=== PATIENT | male | born 1960 | race Caucasian/White ===

== ENCOUNTER 2017-12-10 12:45 | Emergency (ER) | payer OTHER ==
[~2017-12-10] VITALS: Ht 162.6 cm; Wt 95.2 kg
[~2017-12-10 12:45] MED LIST: ACET325 PO; ALBU90OI INH; ALLERCLEAR10 MG PO; AMLACTIN; AMLACTIN 12%; Aspir 8181 MG PO; BENZOYL PEROXIDE 10% TOP; BENZT TP; CHLORHEXIDINE FL1 ML; DILT180ER PO; DIPATR PO; DONE10 PO; ESCI10 PO; FISH1000 PO; GLIM2 PO; GLIM4 PO; GLIP5 PO; Glipizide ER2.5 MG PO; HIBICLENS; HIBICLENS TOP; HIBICLENS120 ML EXT; HYDCHL25 PO; INSLI100I SC; INSULANI SC; KETO15TC TP; LACTIN; LISI20 PO; LISI5 PO; LOPE2C PO; LOVA40 PO; METO50 PO; NUEDEXTA 20-101 EACH PO; OMEP10ER PO; OMEP20ER PO; OMEPRAZOLE MAGN20 MG; ONDA4 PO; Peridex480 ML; Prednisone20 MG PO; RABE20; SULTRIDS PO; TRAZ50; Tamiflu75 MG PO; Toprol Xl25 MG PO; VITAMIN D32000 UNIT PO; [UNRECOGNIZED DRUG - CODE] PO; [UNRECOGNIZED DRUG - OTHER]; [UNRECOGNIZED DRUG - OTHER]; [UNRECOGNIZED DRUG - OTHER]; [UNRECOGNIZED DRUG - REMARK]
[2017-12-10] MEDS ORDERED: ALLO100 PO (13:01)
[2017-12-10 13:15] LABS: BASOPHILS ABSOLUTE AUTO 0.13 K/mm3 (0.00-0.23); BASOPHILS PERCENT AUTO 2 % (0-2); EOSINOPHILS ABSOLUTE AUTO 0.17 K/mm3 (0.00-0.68); EOSINOPHILS PERCENT AUTO 2 % (0-6); Hematocrit 38.7 % (37.0-53.0); Hemoglobin 12.5 g/dL (13.5-17.5); IMMATURE GRAN ABSOLUTE AUTO 0.35 K/mm3 (0.00-0.10); IMMATURE GRAN PERCENT AUTO 4 % (0-1); LYMPHOCYTES ABSOLUTE AUTO 2.38 K/mm3 (0.84-5.20); LYMPHOCYTES PERCENT AUTO 27 % (21-46); MONOCYTES ABSOLUTE AUTO 0.88 K/mm3 (0.16-1.47); MONOCYTES PERCENT AUTO 10 % (4-13); Mean Corpuscular HGB 31.2 pg (26.0-34.0); Mean Corpuscular HGB Conc 32.3 g/dL (31.5-36.5); Mean Corpuscular Volume 97 fL (80-100); Mean Platelet Volume 10.6 fL (9.1-12.4); NEUTROPHILS ABSOLUTE AUTO 4.91 K/mm3 (1.96-9.15); NEUTROPHILS PERCENT AUTO 56 % (41-73); Platelet Count 298 K/mm3 (150-400); RDW Coefficient Variation 13.5 % (11.7-14.2); Red Blood Cell Count 4.01 M/mm3 (4.30-5.90); White Blood Cell Count 8.82 K/mm3 (4.00-11.30)
[2017-12-10 13:32] LABS: Alanine Aminotransfer (ALT/SGP 46 U/L (12-78); Albumin, Blood 2.7 g/dL (3.4-5.0); Albumin/Globulin Ratio 0.8 (0.8-1.8); Alk Phos 95 U/L (50-136); Anion Gap 9 mmol/L (6-16); Aspartate Aminotrans (AST/SGOT 36 U/L (12-37); Bilirubin, Total 0.2 mg/dL (0.1-1.0); Blood Urea Nitrogen 40 mg/dL (8-24); Bun/Creatinine Ratio 20.3 (12.0-20.0); CO2, Blood 25 mmol/L (21-32); Chloride, Blood 108 mmol/L (98-108); Creatinine, Blood 1.97 mg/dL (0.60-1.20); Globulin, Blood 3.4 g/dL (2.2-4.0); Glomerular Filtration Rate 37 (60-); Glucose, Blood 144 mg/dL (70-99); Potassium, Blood 4.5 mmol/L (3.5-5.5); Sodium, Blood 142 mmol/L (136-145); Total Protein, Blood 6.1 g/dL (6.4-8.2); Troponin I <0.015 ng/mL (0.000-0.040)
== END 2017-12-10 14:21 | disposition home or self-care (01) ==
LOC: ER 12:45
PROVIDERS: Emergency Medicine
DX: Q90.9 Down syndrome, unspecified (principal); G30.9 Alzheimer's disease, unspecified; F02.80 Dementia in other diseases classified elsewhere, unspecified severity, without behavioral disturbance, psychotic disturbance, mood disturbance, and anxiety; E11.9 Type 2 diabetes mellitus without complications; I10 Essential (primary) hypertension; K21.9 Gastro-esophageal reflux disease without esophagitis; Z79.84 Long term (current) use of oral hypoglycemic drugs; Z79.899 Other long term (current) drug therapy; Z79.82 Long term (current) use of aspirin
CPT/HCPCS: 36415; 71046; 80053; 84484; 85025; 93005; 93010; 99284

== ENCOUNTER 2018-08-29 14:59 | Observation (INO) | payer OTHER ==
[~2018-08-29] VITALS: Ht 165.1 cm; Wt 90.5 kg
[~2018-08-29 14:59] MED LIST changes: +ALLO100 PO; -CHLORHEXIDINE FL1 ML; -FISH1000 PO; -KETO15TC TP; -METO50 PO; +OMEPRAZOLE MAGN20 MG PO; -VITAMIN D32000 UNIT PO
[2018-08-29] MEDS ORDERED: LOVA40 PO (15:19)
[2018-08-29] MEDS ORDERED: BUME1 PO (15:19)
[2018-08-29 15:44] LABS: BASOPHILS ABSOLUTE AUTO 0.05 K/mm3 (0.00-0.23); BASOPHILS PERCENT AUTO 0 % (0-2); EOSINOPHILS PERCENT AUTO 0 % (0-6); Hematocrit 33.6 % (37.0-53.0); Hemoglobin 10.6 g/dL (13.5-17.5); IMMATURE GRAN ABSOLUTE AUTO 0.57 K/mm3 (0.00-0.10); IMMATURE GRAN PERCENT AUTO 4 % (0-1); LYMPHOCYTES ABSOLUTE AUTO 1.14 K/mm3 (0.84-5.20); LYMPHOCYTES PERCENT AUTO 7 % (21-46); MONOCYTES PERCENT AUTO 6 % (4-13); Mean Corpuscular HGB 31.6 pg (26.0-34.0); Mean Corpuscular HGB Conc 31.5 g/dL (31.5-36.5); Mean Corpuscular Volume 100 fL (80-100); NEUTROPHILS ABSOLUTE AUTO 12.89 K/mm3 (1.96-9.15); NEUTROPHILS PERCENT AUTO 82 % (41-73); Platelet Count 268 K/mm3 (150-400); RDW Coefficient Variation 13.5 % (11.7-14.2); RDW Standard Deviation 49.5 fL (35.1-46.3); Red Blood Cell Count 3.35 M/mm3 (4.30-5.90); White Blood Cell Count 15.65 K/mm3 (4.00-11.30)
[2018-08-29 16:03] LABS: Albumin, Blood 2.4 g/dL (3.4-5.0); Albumin/Globulin Ratio 0.6 (0.8-1.8); Bilirubin, Total 0.2 mg/dL (0.1-1.0); Bun/Creatinine Ratio 20.6 (12.0-20.0); Calcium, Blood 8.9 mg/dL (8.5-10.1); Creatinine, Blood 2.72 mg/dL (0.60-1.20); Globulin, Blood 4.3 g/dL (2.2-4.0); Potassium, Blood 5.5 mmol/L (3.5-5.5); Total Protein, Blood 6.7 g/dL (6.4-8.2)
[2018-08-29 17:01] LABS: Influenza A Negative (NEGATIVE); Influenza B Negative (NEGATIVE)
[2018-08-29 19:33] LABS: Source, Urine Voided
[2018-08-29 19:44] LABS: Appearance, Urine Clear (Clear); Bilirubin, Urine Neg (Neg); Blood, Urine 4+ (Neg); Color, Urine Yellow (P-Yellow); Glucose Qualitative, Urine 1+ (Neg); Ketones, Urine Neg (Neg); Leukocyte Esterase, Urine Neg (Neg); Nitrite, Urine Neg (Neg); Protein, Urine 3+ (Neg); Urobilinogen, Urine NORM (Normal)
[2018-08-29 20:04] LABS: White Blood Cells, Urine 0-2 /hpf (0-5)
[2018-08-29 20:05] LABS: Amorphous Light (0-Heavy); Bacteria Few /hpf; Squamous Epithelial Cells Few /hpf (Few)
[2018-08-29] MEDS ORDERED: Periogard473 ML PO (20:59)
[2018-08-29] MEDS ORDERED: Lopressor 25 mg25 MG PO (21:00)
[2018-08-29] MEDS ORDERED: Poly-Iron150 MG PO (21:02)
[2018-08-29] MEDS ORDERED: VITAMIN D32000 UNIT PO (21:03)
[2018-08-29] MEDS ORDERED: Fish Oil Conc1000 MG PO (21:03)
[2018-08-29] MEDS ORDERED: CLON.1 PO (21:04)
[2018-08-29] MEDS ORDERED: AMLO5 PO (21:04)
[2018-08-29] MEDS ORDERED: OLME20 PO (21:05)
[2018-08-29] MEDS ORDERED: KETO15TC TOP (21:07)
[2018-08-29] MEDS ORDERED: ACET325 PO (21:07)
[2018-08-29] MEDS ORDERED: Loratadine10 MG PO (21:08)
[2018-08-29] MEDS ORDERED: LOPE2C PO (21:09)
[2018-08-29] MEDS ORDERED: GUAI600T33 PO (21:10)
[2018-08-30 05:30] LABS: BASOPHILS ABSOLUTE AUTO 0.07 K/mm3 (0.00-0.23); BASOPHILS PERCENT AUTO 1 % (0-2); EOSINOPHILS PERCENT AUTO 1 % (0-6); Hematocrit 34.5 % (37.0-53.0); Hemoglobin 10.9 g/dL (13.5-17.5); IMMATURE GRAN ABSOLUTE AUTO 0.33 K/mm3 (0.00-0.10); IMMATURE GRAN PERCENT AUTO 2 % (0-1); LYMPHOCYTES ABSOLUTE AUTO 1.16 K/mm3 (0.84-5.20); LYMPHOCYTES PERCENT AUTO 8 % (21-46); MONOCYTES ABSOLUTE AUTO 1.24 K/mm3 (0.16-1.47); MONOCYTES PERCENT AUTO 9 % (4-13); Mean Corpuscular HGB 31.4 pg (26.0-34.0); Mean Corpuscular HGB Conc 31.6 g/dL (31.5-36.5); Mean Corpuscular Volume 99 fL (80-100); Mean Platelet Volume 11.4 fL (9.1-12.4); NEUTROPHILS ABSOLUTE AUTO 11.05 K/mm3 (1.96-9.15); NEUTROPHILS PERCENT AUTO 79 % (41-73); Platelet Count 274 K/mm3 (150-400); RDW Coefficient Variation 13.4 % (11.7-14.2); RDW Standard Deviation 48.6 fL (35.1-46.3); Red Blood Cell Count 3.47 M/mm3 (4.30-5.90); White Blood Cell Count 13.95 K/mm3 (4.00-11.30)
[2018-08-30 05:51] LABS: Bun/Creatinine Ratio 21.6 (12.0-20.0); Calcium, Blood 8.9 mg/dL (8.5-10.1); Creatinine, Blood 2.5 mg/dL (0.60-1.20); Potassium, Blood 4.8 mmol/L (3.5-5.5)
--- NOTE | 2018-08-30 07:18 | NUR ---
SHIFT SUMMARY PT WAS A NEW ADMIT DURING THE NIGHT, ADMITTED FOR WEAKNESS AFTER HE WAS FOUND DOWN AT HIS ALF. THE PT HAS A HX OF DOWNS SYNDROME AND ALZHEIMER'S, AND IS NONVERBAL AT BASELINE. PT WILL RARELY NOD OR SHAKE HEAD TO ANSWER QUESTIONS, BUT IS NOT COOPERATIVE WITH CARE. HE DENIED ANY DISCOMFORT ON ARRIVAL, AND APPEARED COMFORTABLE WITH NO S/S OF DISTRESS. PER REPORT, THE PT NORMALLY WEARS OXYGEN AT NIGHT, BUT REFUSED TO KEEP THE NC ON. VITALS WERE STABLE. NO OTHER ACUTE CHANGES IN PT CONDITION NOTED. WILL CONTINUE TO MONITOR AND TREAT.
[2018-08-30 17:06] LABS: Adenovirus Not Detected (NOT DETECT); Bordetella pertussis Not Detected (NOT DETECT); Chlamydophila pneumoniae Not Detected (NOT DETECT); Coronavirus 229E Not Detected (NOT DETECT); Coronavirus HKU1 Not Detected (NOT DETECT); Coronavirus NL63 Not Detected (NOT DETECT); Coronavirus OC43 Not Detected (NOT DETECT); Human Metapneumovirus Not Detected (NOT DETECT); Human Rhinovirus/Enterovirus Not Detected (NOT DETECT); Influenza A Not Detected (NOT DETECT); Influenza A/2009-H1 Not Detected (NOT DETECT); Influenza A/H1 Not Detected (NOT DETECT); Influenza A/H3 Not Detected (NOT DETECT); Influenza B Not Detected (NOT DETECT); Mycoplasma pneumoniae Not Detected (NOT DETECT); Parainfluenza Virus 1 Not Detected (NOT DETECT); Parainfluenza Virus 2 Not Detected (NOT DETECT); Parainfluenza Virus 3 Not Detected (NOT DETECT); Parainfluenza Virus 4 Not Detected (NOT DETECT); Respiratory Syncytial Virus Not Detected (NOT DETECT)
--- NOTE | 2018-08-30 18:18 | NUR ---
SUMMARY PT BACK TO BED AFTER SITTING UP IN THE CHAIR, PT HAD 2 CAREGIVERS COME TO VISIT WITH HIM TODAY, PT WORKED WITH PT/OT, ABLE TO GET UP WITH 1 PERSON ASSIST, PT OCC TALKING WITH STAFF, ONE WORDS, CAREGIVERS REPORT PT IS MOSTLY DEAF, HELM CATH TAKEN OUT, PT ROSIE WELL, PT ABLE TO TAKE HIS PILLS WHOLE WITH WATER, PT NEEDS ENCOURAGEMENT TO EAT, POOR APPETITE, VSS, NO ACUTE CHANGES, WILL CONT TO MONITOR
[2018-08-31 05:15] LABS: BASOPHILS ABSOLUTE AUTO 0.08 K/mm3 (0.00-0.23); BASOPHILS PERCENT AUTO 1 % (0-2); EOSINOPHILS ABSOLUTE AUTO 0.14 K/mm3 (0.00-0.68); EOSINOPHILS PERCENT AUTO 1 % (0-6); Hematocrit 32.3 % (37.0-53.0); IMMATURE GRAN ABSOLUTE AUTO 0.42 K/mm3 (0.00-0.10); IMMATURE GRAN PERCENT AUTO 4 % (0-1); LYMPHOCYTES ABSOLUTE AUTO 1.61 K/mm3 (0.84-5.20); LYMPHOCYTES PERCENT AUTO 17 % (21-46); MONOCYTES ABSOLUTE AUTO 1.05 K/mm3 (0.16-1.47); MONOCYTES PERCENT AUTO 11 % (4-13); Mean Corpuscular HGB 31.3 pg (26.0-34.0); Mean Corpuscular Volume 101 fL (80-100); Mean Platelet Volume 11.1 fL (9.1-12.4); NEUTROPHILS ABSOLUTE AUTO 6.46 K/mm3 (1.96-9.15); NEUTROPHILS PERCENT AUTO 66 % (41-73); Platelet Count 270 K/mm3 (150-400); RDW Coefficient Variation 13.4 % (11.7-14.2); RDW Standard Deviation 50.1 fL (35.1-46.3); White Blood Cell Count 9.76 K/mm3 (4.00-11.30)
[2018-08-31 05:41] LABS: Albumin, Blood 2.2 g/dL (3.4-5.0); Anion Gap 7 mmol/L (6-16); Blood Urea Nitrogen 45 mg/dL (8-24); Bun/Creatinine Ratio 20.5 (12.0-20.0); CO2, Blood 25 mmol/L (21-32); Calcium, Blood 8.5 mg/dL (8.5-10.1); Chloride, Blood 110 mmol/L (98-108); Glomerular Filtration Rate 33 (60-); Glucose, Blood 154 mg/dL (70-99); Phosphorus, Blood 3.3 mg/dL (2.5-4.9); Potassium, Blood 4.5 mmol/L (3.5-5.5); Sodium, Blood 142 mmol/L (136-145)
[2018-08-31 05:42] LABS: CPK Creatine Kinase 489 U/L (39-308)
--- NOTE | 2018-08-31 06:31 | NUR ---
SHIFT SUMMARY PT IS A 58 Y/O MALE, WITH A HX OF DOWN SYNDROME AND ALZHEIMER'S, AND NONVERBAL AT BASELINE. HE WAS ADMITTED FOR WEAKNESS AFTER BEING FOUND DOWN AT HIS [facility]. THE PT WAS MORE INTERACTIVE WITH STAFF COMPARED TO THE PREVIOUS NIGHT. THE PT SLEPT WELL THROUGH THE NIGHT WITH NO COMPLAINTS OF PAIN, NAUSEA OR SOB. PT'S BP WAS ELEVATED THIS AM AT 175/55. ALL OTHER VITALS STABLE. NO ACUTE CHANGES IN PT CONDITION NOTED. WILL CONTINUE TO MONITOR AND TREAT PER EMAR.
[2018-08-31] MEDS ORDERED: ALBU2.5V5 NEB (16:01)
--- NOTE | 2018-08-31 16:29 | NUR ---
DISCHARGE PT'S FOOT XRAY NEGATIVE, PT BEING DISCHARGED HOME WITH HOME HEALTH, CALLED THE FACILITY AND SPOKE WITH "GODFREY", THEY HAVE NO PREFERENCE OF AGENCY, ORDERS FAXED TO [facility], ALSO SHE SAID A STAFF MEMBER WOULD BE ABLE TO COME GET THE PT AFTER 5 PM
--- NOTE | 2018-08-31 17:05 | NUR ---
SUMMARY PT DISCHARGED TO HOME, GAS LEAK INSPECTOR HERE TO GET THE PT, PAPERWORK GIVEN TO THE GAS LEAK INSPECTOR, PT TAKEN OUT SAFELY VIA WHEELCHAIR
== END 2018-08-31 17:02 | disposition home health service (06) ==
LOC: ER 14:59 → MEDS 15:00
PROVIDERS: Emergency Medicine; Family Medicine; Nurse Practitioner Acute Care; ADMIT Internal Medicine
DX: T79.6XXA Traumatic ischemia of muscle, initial encounter (principal); E11.65 Type 2 diabetes mellitus with hyperglycemia; N17.9 Acute kidney failure, unspecified; I12.9 Hypertensive chronic kidney disease with stage 1 through stage 4 chronic kidney disease, or unspecified chronic kidney disease; E11.22 Type 2 diabetes mellitus with diabetic chronic kidney disease; N18.4 Chronic kidney disease, stage 4 (severe); D72.829 Elevated white blood cell count, unspecified; R06.00 Dyspnea, unspecified; F03.90 Unspecified dementia, unspecified severity, without behavioral disturbance, psychotic disturbance, mood disturbance, and anxiety; Q90.9 Down syndrome, unspecified; M10.9 Gout, unspecified; F79 Unspecified intellectual disabilities; G47.33 Obstructive sleep apnea (adult) (pediatric); E78.5 Hyperlipidemia, unspecified; E66.01 Morbid (severe) obesity due to excess calories; Z99.89 Dependence on other enabling machines and devices; Z79.899 Other long term (current) drug therapy; Z79.82 Long term (current) use of aspirin; Z79.84 Long term (current) use of oral hypoglycemic drugs; Z95.0 Presence of cardiac pacemaker; Z68.30 Body mass index [BMI] 30.0-30.9, adult; W19.XXXA Unspecified fall, initial encounter
CPT/HCPCS: 36415; 51702; 71046; 73620; 80048; 80053; 80069; 81001; 82550; 82947; 83605; 84145; 85025; 87486; 87581; 87633; 87798; 87804; 93005; 93010; 93971; 94640; 94760; 96360-59; 96361; 96361-59; 96372; 97110; 97116; 97162; 97166; 97530; 99285-25; G0378; J1650; J7030

== ENCOUNTER 2018-10-18 16:12 | Emergency (ER) | payer OTHER ==
[~2018-10-18] VITALS: Ht 152.4 cm; Wt 79.4 kg
[~2018-10-18 16:12] MED LIST changes: +ALBU2.5V5 NEB; +AMLO5 PO; +BUME1 PO; +CLON.1 PO; +Fish Oil Conc1000 MG PO; +GUAI600T33 PO; +KETO15TC TOP; +Lopressor 25 mg25 MG PO; +Loratadine10 MG PO; +OLME20 PO; +Periogard473 ML PO; +Poly-Iron150 MG PO; +VITAMIN D32000 UNIT PO
== END 2018-10-18 16:44 | disposition home or self-care (01) ==
LOC: ER 16:12
DX: R58 Hemorrhage, not elsewhere classified (principal); Z79.82 Long term (current) use of aspirin; Z79.899 Other long term (current) drug therapy; Z95.0 Presence of cardiac pacemaker
CPT/HCPCS: 99282

== ENCOUNTER 2019-09-01 10:30 | Inpatient (IN) | payer OTHER ==
[~2019-09-01] VITALS: Ht 157.5 cm; Wt 77.8 kg
[~2019-09-01 10:30] MED LIST changes: -DONE10 PO; +DONEPEZIL HCL10 MG PO
[2019-09-01 11:10] LABS: BASOPHILS ABSOLUTE AUTO 0.07 K/mm3 (0.00-0.23); BASOPHILS PERCENT AUTO 0 % (0-2); EOSINOPHILS ABSOLUTE AUTO 0.02 K/mm3 (0.00-0.68); EOSINOPHILS PERCENT AUTO 0 % (0-6); Hematocrit 37.4 % (37.0-53.0); Hemoglobin 12.1 g/dL (13.5-17.5); IMMATURE GRAN ABSOLUTE AUTO 0.25 K/mm3 (0.00-0.10); IMMATURE GRAN PERCENT AUTO 1 % (0-1); LYMPHOCYTES PERCENT AUTO 5 % (21-46); MONOCYTES ABSOLUTE AUTO 1.18 K/mm3 (0.16-1.47); MONOCYTES PERCENT AUTO 6 % (4-13); Mean Corpuscular HGB 31.9 pg (26.0-34.0); Mean Corpuscular HGB Conc 32.4 g/dL (31.5-36.5); Mean Corpuscular Volume 99 fL (80-100); Mean Platelet Volume 11.3 fL (9.1-12.4); NEUTROPHILS ABSOLUTE AUTO 18.33 K/mm3 (1.96-9.15); NEUTROPHILS PERCENT AUTO 88 % (41-73); Platelet Count 277 K/mm3 (150-400); RDW Coefficient Variation 14.9 % (11.7-14.2); RDW Standard Deviation 53.6 fL (35.1-46.3); Red Blood Cell Count 3.79 M/mm3 (4.30-5.90); White Blood Cell Count 20.95 K/mm3 (4.00-11.30)
[2019-09-01 11:31] LABS: Albumin, Blood 2.5 g/dL (3.4-5.0); Albumin/Globulin Ratio 0.6 (0.8-1.8); Bilirubin, Total 0.3 mg/dL (0.1-1.0); Bun/Creatinine Ratio 25.9 (12.0-20.0); Calcium, Blood 9.2 mg/dL (8.5-10.1); Creatinine, Blood 3.16 mg/dL (0.60-1.20); Globulin, Blood 4.1 g/dL (2.2-4.0); Potassium, Blood 5.6 mmol/L (3.5-5.5); Total Protein, Blood 6.6 g/dL (6.4-8.2)
[2019-09-01] MEDS ORDERED: OLME20 PO (11:49)
[2019-09-01] MEDS ORDERED: LOVA40 PO (11:52)
[2019-09-01] MEDS ORDERED: Bumetanide1 MG PO (11:53)
[2019-09-01] MEDS ORDERED: MEGESTROL400 MG/10 PO (11:54)
[2019-09-01 12:12] LABS: Source, Urine Catheter
[2019-09-01 12:19] LABS: Bilirubin, Urine Neg (Neg); Blood, Urine 4+ (Neg); Glucose Qualitative, Urine Neg (Neg); Ketones, Urine Neg (Neg); Leukocyte Esterase, Urine Neg (Neg); Nitrite, Urine Neg (Neg); Protein, Urine 3+ (Neg); Specific Gravity, Urine 1.015 (1.003-1.022); Urobilinogen, Urine NORM (Normal)
[2019-09-01 12:25] LABS: Appearance, Urine Cloudy (Clear); Color, Urine Pale Yellow (P-Yellow)
[2019-09-01 12:29] LABS: Bacteria Many /hpf; Squamous Epithelial Cells Few /hpf (Few); White Blood Cells, Urine 0-2 /hpf (0-5)
[2019-09-01 12:30] LABS: Amorphous Heavy (0-Heavy)
[2019-09-01 14:06] LABS: Adenovirus Not Detected (NOT DETECT); Bordetella pertussis Not Detected (NOT DETECT); Chlamydophila pneumoniae Not Detected (NOT DETECT); Coronavirus 229E Not Detected (NOT DETECT); Coronavirus HKU1 Not Detected (NOT DETECT); Coronavirus NL63 Not Detected (NOT DETECT); Coronavirus OC43 Not Detected (NOT DETECT); Human Metapneumovirus Not Detected (NOT DETECT); Human Rhinovirus/Enterovirus Not Detected (NOT DETECT); Influenza A/2009-H1 Not Detected (NOT DETECT); Influenza A/H1 Not Detected (NOT DETECT); Influenza A/H3 Not Detected (NOT DETECT); Influenza B Not Detected (NOT DETECT); Mycoplasma pneumoniae Not Detected (NOT DETECT); Parainfluenza Virus 1 Not Detected (NOT DETECT); Parainfluenza Virus 2 Not Detected (NOT DETECT); Parainfluenza Virus 3 Not Detected (NOT DETECT); Parainfluenza Virus 4 Not Detected (NOT DETECT); Respiratory Syncytial Virus Not Detected (NOT DETECT)
--- NOTE | 2019-09-01 18:24 | NUR ---
SISTER IN LAW CALLED IN, received update and promised to call tomorrow for further updates, wanted the dr to be aware that this happened 10-15 years ago and needed to be sent up to [facility] to get it removed, pt is non verbal and not able to offer clarification, belives he has a pacemaker, called caregiver r/flu shot and am awaiting response, alert but sleepy, opens eyes when spoken to and to discomfort (moved or blankets removed), dressing placed and photo taken of wound on coccyx, bed in low position and alarm on, call light in reach, wheeze noted in r side lungs clear on left side, refused meal, left in rm away from bed since not sure if able to eat safely, will continue to monitor and treat until share bsr with noc shift nurse
[2019-09-01 19:59] LABS: Bun/Creatinine Ratio 25.6 (12.0-20.0); Calcium, Blood 9.1 mg/dL (8.5-10.1); Creatinine, Blood 2.85 mg/dL (0.60-1.20)
[2019-09-02 06:20] LABS: BASOPHILS PERCENT AUTO 1 % (0-2); EOSINOPHILS ABSOLUTE AUTO 0.15 K/mm3 (0.00-0.68); EOSINOPHILS PERCENT AUTO 1 % (0-6); Hematocrit 34.6 % (37.0-53.0); Hemoglobin 10.8 g/dL (13.5-17.5); IMMATURE GRAN ABSOLUTE AUTO 0.24 K/mm3 (0.00-0.10); IMMATURE GRAN PERCENT AUTO 2 % (0-1); LYMPHOCYTES ABSOLUTE AUTO 1.77 K/mm3 (0.84-5.20); LYMPHOCYTES PERCENT AUTO 12 % (21-46); MONOCYTES ABSOLUTE AUTO 0.83 K/mm3 (0.16-1.47); MONOCYTES PERCENT AUTO 6 % (4-13); Mean Corpuscular HGB 31.1 pg (26.0-34.0); Mean Corpuscular HGB Conc 31.2 g/dL (31.5-36.5); Mean Corpuscular Volume 100 fL (80-100); Mean Platelet Volume 11.3 fL (9.1-12.4); NEUTROPHILS ABSOLUTE AUTO 11.41 K/mm3 (1.96-9.15); NEUTROPHILS PERCENT AUTO 79 % (41-73); Platelet Count 260 K/mm3 (150-400); RDW Coefficient Variation 15.2 % (11.7-14.2); RDW Standard Deviation 55.6 fL (35.1-46.3); Red Blood Cell Count 3.47 M/mm3 (4.30-5.90)
[2019-09-02 06:37] LABS: Bun/Creatinine Ratio 25.2 (12.0-20.0); Calcium, Blood 9.3 mg/dL (8.5-10.1); Creatinine, Blood 2.86 mg/dL (0.60-1.20); Potassium, Blood 5.6 mmol/L (3.5-5.5)
--- NOTE | 2019-09-02 06:38 | NUR ---
MID LEVEL BUSINESS ANALYST SUMMARY NO ACUTE CHANGES THIS SHIFT. PT AAOX1, NON VERBAL WHICH IS BASELINE DUE TO DS AND ADVANCED DEMENTIA. PT IN NO APPARENT DISTRESS. HAS BEEN RESTING QUIETLY THROUGH THE NIGHT. NO SOB OR COUGH NOTED. AFEBRILE AND VSS. WILL CONTINUE TO MONITOR.
--- NOTE | 2019-09-02 10:09 | NUR ---
PHONE CALL SPOKE WITH PT'S SISTER IN LAW AND BROTHER ON THE PHONE, THEY WOULD LIKE TO BE NOTIFIED IF PT GETS WORSE [phone]
--- NOTE | 2019-09-02 10:11 | NUR ---
SPOKE WITH CORRECTION [phone] UPDATED THEM
--- NOTE | 2019-09-02 17:37 | NUR ---
SUMMARY PT RESTING QUIETLY IN BED WATCHING TV, PT HAS BEEN NON VERBAL FOR MOST OF THE DAY, DOES NOT ATTEMPT TO CLIMB OUT OF BED, BED ALARM ON FOR SAFETY, PT IS A FEEDER, PILLS ARE GIVEN WHOLE IN APPLESAUCE OR PUDDING, PT'S GROIN AND SALAZAR ARE IS EXCORIATED, BARRIER CREAM APPLIED, NO ACUTE CHANGES, WILL CONT TO MONITOR
--- NOTE | 2019-09-03 04:04 | NUR ---
NEW IV PLACED TO R.FA VIA US BY TAQUERIA SCHAFFER LEAVE MANAGER. LABS DRAWN THE IV WAS SL.
[2019-09-03 04:24] LABS: BASOPHILS ABSOLUTE AUTO 0.09 K/mm3 (0.00-0.23); BASOPHILS PERCENT AUTO 1 % (0-2); EOSINOPHILS ABSOLUTE AUTO 0.15 K/mm3 (0.00-0.68); EOSINOPHILS PERCENT AUTO 1 % (0-6); Hematocrit 31.4 % (37.0-53.0); IMMATURE GRAN ABSOLUTE AUTO 0.24 K/mm3 (0.00-0.10); IMMATURE GRAN PERCENT AUTO 2 % (0-1); LYMPHOCYTES ABSOLUTE AUTO 1.91 K/mm3 (0.84-5.20); LYMPHOCYTES PERCENT AUTO 17 % (21-46); MONOCYTES PERCENT AUTO 6 % (4-13); Mean Corpuscular HGB 31.6 pg (26.0-34.0); Mean Corpuscular HGB Conc 31.8 g/dL (31.5-36.5); Mean Corpuscular Volume 99 fL (80-100); Mean Platelet Volume 11.6 fL (9.1-12.4); NEUTROPHILS ABSOLUTE AUTO 8.13 K/mm3 (1.96-9.15); NEUTROPHILS PERCENT AUTO 73 % (41-73); Platelet Count 269 K/mm3 (150-400); Red Blood Cell Count 3.16 M/mm3 (4.30-5.90); White Blood Cell Count 11.22 K/mm3 (4.00-11.30)
[2019-09-03 04:39] LABS: Bun/Creatinine Ratio 28.3 (12.0-20.0); Calcium, Blood 9.1 mg/dL (8.5-10.1); Creatinine, Blood 2.47 mg/dL (0.60-1.20)
--- NOTE | 2019-09-03 06:20 | NUR ---
SUMMARY: PT ORIENTED TO SELF ONLY AND IS MOSTLY NONVERBAL D/T DD AND ADVANCED DEMENTIA. HE OCCASIONALLY MAKES SOUNDS BUT ISN'T ABLE TO SPECIFY NEEDS. AT TIMES HE IS RESISTANT TO CARE AND CAN BECOME COMBATIVE BUT TYPICALLY CALMS W/REASSURANCE AND EXPLANATIONS. PT REMAINS IN ISO FOR R/O COVID BUT HAS BEEN ASYMPTOMATIC OF RESP DISTRESS W/O COUGH AND SPO2 WNL ON RA. LS WERE CLEAR AND DIM IN BASES, RESPS E/U AND ON IV ABX FOR PNM. PT TOLERATED PILLS WHOLE IN APPLESAUCE W/O S/S ASPIRATION. HE'S ON BEDREST W/TURN SCHEDULE MAINTAINED AND ATTENDS CHANGED PRN FOR INCONTINENCE. MEPILEX REMAINS C/D/I TO COCCYX AND CREAM APPLIED TO BUTTOCKS AND SALAZAR AREA FOR REDNESS AND EXCORIATION. PT IS NSR AT 60'S BPM, 100% PACED PER TELEMETRY. PT PULLED OWN IV SO NEW IV WAS PLACED TO R.FA VIA US THEN SL. NO ACUTE CHANGES, VSS/AFEBRILE. WCTM/REPORT TO DAY RN.
--- NOTE | 2019-09-03 17:22 | NUR ---
SUMMARY PT RESTING QUIETLY IN BED, WAKES EASILY, HAS BEEN NON-VERBAL T/O THE DAY, ALF DID CALL TO CHECK ON HIM, PT REMAINS BED BOUND AT THIS TIME, DOES NOT TRY TO CLIMB OUT OF BED, IS A FEEDER, VSS, NO ACUTE CHANGES, WILL CONT TO MONITOR
[2019-09-04 05:08] LABS: BASOPHILS ABSOLUTE AUTO 0.12 K/mm3 (0.00-0.23); BASOPHILS PERCENT AUTO 1 % (0-2); EOSINOPHILS ABSOLUTE AUTO 0.19 K/mm3 (0.00-0.68); EOSINOPHILS PERCENT AUTO 2 % (0-6); Hematocrit 31.8 % (37.0-53.0); Hemoglobin 10.1 g/dL (13.5-17.5); IMMATURE GRAN ABSOLUTE AUTO 0.56 K/mm3 (0.00-0.10); IMMATURE GRAN PERCENT AUTO 4 % (0-1); LYMPHOCYTES ABSOLUTE AUTO 1.94 K/mm3 (0.84-5.20); LYMPHOCYTES PERCENT AUTO 15 % (21-46); MONOCYTES ABSOLUTE AUTO 0.74 K/mm3 (0.16-1.47); MONOCYTES PERCENT AUTO 6 % (4-13); Mean Corpuscular HGB 31.9 pg (26.0-34.0); Mean Corpuscular HGB Conc 31.8 g/dL (31.5-36.5); Mean Corpuscular Volume 100 fL (80-100); Mean Platelet Volume 11.8 fL (9.1-12.4); NEUTROPHILS ABSOLUTE AUTO 9.08 K/mm3 (1.96-9.15); NEUTROPHILS PERCENT AUTO 72 % (41-73); Platelet Count 258 K/mm3 (150-400); RDW Coefficient Variation 14.7 % (11.7-14.2); RDW Standard Deviation 54.8 fL (35.1-46.3); Red Blood Cell Count 3.17 M/mm3 (4.30-5.90); White Blood Cell Count 12.63 K/mm3 (4.00-11.30)
--- NOTE | 2019-09-04 05:17 | NUR ---
COVID-19 RESULTS ARE NEGATIVE W/INFECTION CONTROL CONSULTED AND ISOLATION D/C'D AT THIS TIME PER JOE RAMÍREZ.
[2019-09-04 05:36] LABS: Albumin, Blood 2.1 g/dL (3.4-5.0); Anion Gap 7 mmol/L (6-16); Blood Urea Nitrogen 69 mg/dL (8-24); Bun/Creatinine Ratio 30.5 (12.0-20.0); CO2, Blood 21 mmol/L (21-32); Calcium, Blood 8.9 mg/dL (8.5-10.1); Chloride, Blood 113 mmol/L (98-108); Creatinine, Blood 2.26 mg/dL (0.60-1.20); Glomerular Filtration Rate 32 (60-); Glucose, Blood 243 mg/dL (70-99); Potassium, Blood 4.9 mmol/L (3.5-5.5); Sodium, Blood 141 mmol/L (136-145)
--- NOTE | 2019-09-04 06:18 | NUR ---
SUMMARY: PT ORIENTED TO SELF ONLY AND IS MOSTLY NONVERBAL BUT OCCASIONALLY MAKES SOUNDS AND SMILES AT STAFF. HE IS DD W/DEMENTIA AND APPEARS TO HAVE SOME SUN DOWNERS. HE WAS PLEASANT AND COOPERATIVE THIS SHIFT BUT CAN SELDOMLY BECOME AGGITATED AND COMBATIVE DURING CARE. ATTENDS AND LINEN CHANGED PRN FOR INCONTINENCE. HE HAD A BM THIS SHIFT W/MEPILEX TO COCCYX CHANGED AND LOTION APPLIED TO EXCORIATED BUTTOCKS AND SALAZAR AREA. TURN SCHEDULE MAINTAINED D/T BEDREST AT BASELINE. FEEDER ASSIST REQUIRED PILLS TOLERATED WHOLE IN APPLESAUCE. COVID RESULT WAS (-) SO ISO DC'D PER INFECTION CONTROL. IVF COMPLETED THEN SL. NO ACUTE CHANGES, VSS/AFEBRILE. PT 100% PACED W/1ST DEGREE BLOCK AT 60'S BPM. WCTM AND REPORT TO DAY RN.
[2019-09-04] MEDS ORDERED: Vsl#3 Capsule1 EACH (14:52)
[2019-09-04] MEDS ORDERED: AZIT500 PO (14:52)
[2019-09-04] MEDS ORDERED: CEFU500T30 PO (14:53)
--- NOTE | 2019-09-04 15:08 | NUR ---
INITIAL PAL CARE VISIT: Pal care referral received for clarification/update of POLST/AD, advanced care planning conversations. EMR and current POLST reviewed. Attempted to reach [employer] by phone and found the number in EMR for SAULO is disconnected. Spoke to Suzy at [facility] senior living and obtained correct contact information for Cecilio's brother, Romulo. Reviewed current POLST, discussed family wishes and their perception of his supervisor intermediates medical care goals with Romulo by phone. Romulo states he and his other brother have discussed this along with CG of 22 years, Suzy and they do not want pt to be rescusitated with compressions, shocks or medications and they don't want him to be intubated if he were to experience cardiac or respiratory failure. They want limited interventions such as antibiotics for infections, medications for comfort. New POLST completed per medical POA's wishes with Dr vazquez obtained. Code status changed per POLST. Hard copy of POLST & corrected NOK contact # taken to medical records. Case conferenced with RN, CM, brother and CG after my visit. Pt was initially asleep on first attempt. He was enjoying his lunch with help from BATT MACHINE OPERATOR on second attempt. Pt has been ruled out for COVID-19. CG expressed need for hospital bed to adequately care for pt at his half-way. MARTIN is working on this and message passed on to her that CG would like to coordinate for d/c planning. Requested CM call Suzy to update on d/c timeframe and DME delivery.
--- NOTE | 2019-09-04 15:54 | NUR ---
DISCHARGE AND SHIFT SUMMARY COORDINATED WITH PATIENT'S CAREGIVER GODFREY, DR. DELUNA, AND ROSA PONCE TO FACILITATE HOSPITAL BED. PATIENT FOR DISCHARGE AT 1700 WITH TRANSPORTATION. PRESCRIPTIONS CALLED INTO PHARMACY PROVIDED BY GODFREY. REVIEWED DISCHARGE INSTRUCTIONS AND NEW MEDICATIONS WITH GODFREY OVER THE PHONE. PERIPHERAL IV & TELE REMOVED. PHOTOS OF SACRAL WOUND TAKEN AND PLACED IN THE CHART FOR DISCHARGE, NEW SACRAL MEPILEX APPLIED. ALL OF PATIENT'S PERSONAL BELONGINGS RECONCILED FOR DISCHARGE.
--- NOTE | 2019-09-04 17:13 | NUR ---
1710 PATIENT DISCHARGED VIA STRETCHER, REPORT GIVEN TO TRANSPORTERS. SENT WITH DISCHARGE INFORMATION AND POLST FORM
== END 2019-09-04 17:15 | disposition home or self-care (01) | DRG 193 ==
LOC: ER 10:30 → MEDS 13:32
PROVIDERS: Emergency Medicine; Internal Medicine; ADMIT Internal Medicine
DX: J18.9 Pneumonia, unspecified organism (principal); R53.2 Functional quadriplegia; N17.9 Acute kidney failure, unspecified; N18.4 Chronic kidney disease, stage 4 (severe); E87.2 Acidosis; E87.1 Hypo-osmolality and hyponatremia; J91.8 Pleural effusion in other conditions classified elsewhere; E87.5 Hyperkalemia; E66.01 Morbid (severe) obesity due to excess calories; G47.33 Obstructive sleep apnea (adult) (pediatric); E11.22 Type 2 diabetes mellitus with diabetic chronic kidney disease; I12.9 Hypertensive chronic kidney disease with stage 1 through stage 4 chronic kidney disease, or unspecified chronic kidney disease; F03.90 Unspecified dementia, unspecified severity, without behavioral disturbance, psychotic disturbance, mood disturbance, and anxiety; Z51.5 Encounter for palliative care; E86.0 Dehydration; E78.5 Hyperlipidemia, unspecified; M10.9 Gout, unspecified; Q90.9 Down syndrome, unspecified; Z95.0 Presence of cardiac pacemaker; Z79.82 Long term (current) use of aspirin; Z79.84 Long term (current) use of oral hypoglycemic drugs; Z79.818 Long term (current) use of other agents affecting estrogen receptors and estrogen levels; Z79.899 Other long term (current) drug therapy; Z68.36 Body mass index [BMI] 36.0-36.9, adult
CPT/HCPCS: 0099U; 36415; 51701; 71045; 76770; 80048; 80053; 80069; 81001; 82947; 83605; 84145; 85025; 87040; 87086; 93005; 93010; 96365; 96366; 96367; 99285-25; A9270-GY; J0456; J0696; J1650; J7030; J7050; J7070; U0002